=== PATIENT | male | born 1990 | race Caucasian/White ===

== ENCOUNTER 2019-03-14 14:51 | Outpatient (RCR) | payer OTHER, SELFPAY ==
--- NOTE | 2019-03-14 15:28 | HP.PTEVAL ---
Patient's Visit Information AYLIN SIMPSON is a 28 year old M referred to Physical Therapy by Lizabeth Calhoun NP with a diagnosis of vertigo. Date of Evaluation: 03/14/19 Physical Therapist: Harley Potts, REE, OCS, CSCS - Visit Plan Frequency: 1x/Week Duration: 4-6 Weeks Plan: Weekly x 2-6 as needed for positional treatments and reintegration to climbing if needed. Next session recheck positional and turning balance. - Subjective Findings: Vertigo for a year and a half. Intermittently worse. Feels constant dyequilibrium worse with head movements. Spinning can happen if he looks up and down too quick. Lasts a minute or so. 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 Activities are effected in that playing hard ball isn't easy. 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 Has to be careful. No falls. Balance is not the best. Sleep is good. May have started with an incident where he jumped off something adn hit tailbone whcih raghavendra his body. - Objective Walks normal and trasnfers normal and I. C/S aROM WFL and without pain. Balance appears good except with quick turn. - L hallpike norm. + R hallpike for up torsional nystagmus of 5 second duration adn dizzy. Treated with R Bobbi and then negative test. - Balance Scores Functional Gait Assessment Score: 28 % Disability: 6.6700 - Goals Goal 1:: Abolish vertigo feeling Goal Time Frame: 4-6 Weeks Goal 2:: Climb adders confidently without concern Goal Time Frame: 4-6 Weeks - Rehabilitation Potential Physical Therapy Diagnosis: BPPV Rehabilitation Potential: Good - Anticipated Interventions Patient/Client Instruction: Educate patient on: Condition, Plan of Care For the Purpose of:: To increase tolerance to activity/condition/position Comment: positional ex adn treatments For the Purpose of:: To increase tolerance to activity/condition/position Thank you for the opportunity to evaluate your patient. For Medicare and Medicare HMO plans, please review the plan of care and approve it. It will need to be FAXED BACK to us at [phone] for Medicare purposes. For Medicare only, by signing this I certify the plan of care. Please let me know if there are questions or concerns regarding this plan of care. Physician Signature: Date:
--- NOTE | 2019-05-21 13:42 | HP.PTDCNRP_ITS ---
HP - Discharge Summary (1) - Patient Information AYLIN SIMPSON was seen in my office for initial evaluation on 03/14/19. The following Plan of Care was established for this patient: Initial Frequency: 1x/Week Initial Duration: 4-6 Weeks - Anticipated Interventions Patient/Client Instruction: Educate patient on: Condition, Plan of Care For the Purpose of:: To increase tolerance to activity/condition/position For the Purpose of:: To increase tolerance to activity/condition/position This patient was last seen in our office 03/14/19. Pertinent comments regarding their Physical therapy will appear below: Pt seen for one visit adn was treated with repositioning technique. She was to f/u weekly to ensure abolishment of dizzyness but neglected to schedule or atte nd any further visits. At this point, it has been over two months adn I will discontinue due to nonattendance. At this point I will be discontinuing this patient from physical therapy. I would be happy to see this patient again in the future if found appropriate by the physician. Thank you! Harley Potts, DPT, OCS, CSCS
== END 2019-03-14 19:00 | disposition home or self-care (01) ==
LOC: PT 14:51
PROVIDERS: Family Provider Family Medicine; PCP Family Medicine; Referring Provider Nurse Practitioner; Visit Provider Nurse Practitioner
DX: R42 Dizziness and giddiness (principal)
CPT/HCPCS: 97161

== ENCOUNTER → 2019-11-28 06:24 | Outpatient (CLI) | payer SELFPAY, OTHER ==
--- NOTE | 2019-11-28 06:35 | MRI_ITS ---
STUDY: MRI BRAIN WITH AND WITHOUT CONTRAST REASON FOR EXAM: Male, 29 years old. ataxia, vertigo, off balance, vision changes COMPARISON: None. TECHNIQUE: An MRI was performed utilizing axial diffusion and ADC map images followed by axial T2 and FLAIR and gradient echo images followed by sagittal and axial T1 weighted images. Multiplanar postcontrast T1-weighted images of the head were also obtained. FINDINGS: The diffusion weighted axial images and ADC map images of the head show mild restricted diffusion in a 5 x 4 hyperdense mass lesion seen with its epicenter located at the right dorsum and diaphragmatic sella. This meningioma extends inferiorly along the right clivus. The medulla appears to be normal. The right side of the rosemary is compressed by this hypodense mass lesion which uniformly enhances. This represents a large meningioma which is compressing the rosemary and the right midbrain and right cerebral peduncle. The inferior superior extent of this mass lesion is 5.17 cm. This meningioma appears to be partly encasing the right distal vertebral artery and the right side of the basilar artery and the right posterior cerebral artery. The massive compression of the brainstem is causing compression of the aqueduct of Sylvius and the fourth ventricle The ventricles and sulci are mildly enlarged. The meningioma appears to be extending over the right tentorium and is compressing the medial aspect of the right temporal lobe.The remainder of the cerebral hemispheres appear to be normal.The basal ganglia appear to be normal. No other enhancing masses or lesions are seen. The gradient echo axial images are normal. No evidence of a Chiari I malformation is identified. The V4 segments of the left vertebral artery, appears to be normal, the basilar artery is partially encased by the large meningioma., The P1 and P2 segments of the right posterior cerebral artery are encased by the meningioma., The right supraclinoid carotid artery and the M1 segment of the right middle cerebral artery appear to be encased by the meningioma. This large meningioma is causing some mild inferior effacement of the right optic chiasm and is effacing the inferior aspect of the right optic nerve. The pituitary and pituitary infundibulum appear to be normal. The inner and outer tables of the skull are normal The frontal, ethmoid, maxillary, and sphenoid sinuses are normal. The mastoid air cells are normal. Dr. Gomez was notified by Dr. Young''s critical zone at 8:30 AM on 11/28/2019 MRI/Brain W/WO Contrast IMPRESSION: A large 5 x 5 x 4 cm meningioma is noted on the right with the epicenter at the right dorsum sella extending inferiorly along the clivus. This large meningioma is encasing multiple cerebral vessels and is causing mild obstructive hydrocephalus. It is also effacing the inferior right optic chiasm and right optic nerve. N.B. : The above information has been verbally conveyed by Josh Young to Carlos Gomez MD, on 11/28/2019 08:27:22 (ET). Electronically Signed: Josh Young, at 8:42 EST Tel , Service support ,
== END ==
PROVIDERS: PCP Family Medicine; Referring Provider Otolaryngology; Visit Provider Otolaryngology
DX: R27.0 Ataxia, unspecified (principal)
CPT/HCPCS: 70553; A9575

== ENCOUNTER → 2022-06-08 | Outpatient (CLI) | payer OTHER, SELFPAY ==
[2022-06-08 10:25] LABS: Sodium Level 135 mmol/L (136-145); T4 Free Direct 0.46 ng/dL (0.76-1.46)
== END | disposition home or self-care (01) ==
PROVIDERS: PCP Family Medicine
DX: D32.9 Benign neoplasm of meninges, unspecified (principal)
CPT/HCPCS: 36415; 84295; 84439

== ENCOUNTER → 2022-06-15 | Outpatient (CLI) | payer OTHER, SELFPAY ==
[2022-06-15 09:17] LABS: Sodium Level 144 mmol/L (136-145); T4 Free Direct 0.67 ng/dL (0.76-1.46)
== END | disposition home or self-care (01) ==
LOC: LAB 07:51
PROVIDERS: PCP Family Medicine
DX: Z00.00 Encounter for general adult medical examination without abnormal findings (principal)
CPT/HCPCS: 36415; 84295; 84439

== ENCOUNTER → 2022-08-17 | Outpatient (CLI) | payer OTHER, SELFPAY ==
[2022-08-17 09:03] LABS: Anion Gap 4 (5-15); BUN 10 mg/dL (7-18); BUN/Creat Ratio 10.8 RATIO (10-20); Calcium,Total 9.5 mg/dL (8.5-10.1); Chloride 106 mmol/L (98-107); Creatinine, Serum 0.92 mg/dL (0.70-1.30); EST Glomerular Filtration Rate 101 mL/min (>60); Est Glom Filt Rate - Afr Amer 123 mL/min (>60); Glucose 89 mg/dL (74-106); Luteinizing Hormone 2.2 mIU/mL; Potassium 4.1 mmol/L (3.5-5.1); Sodium Level 141 mmol/L (136-145); Thyroid Stim Hormone (TSH) 2.33 uIU/mL (0.358-3.74)
[2022-08-23 12:08] LABS: Testosterone, % Free 2.81 % (1.50-4.20); Testosterone, Free 16.16 ng/dL (5.00-21.00)
[2022-08-23 15:52] LABS: Adrenocorticotropic Hormone 24.1 pg/mL (7.2-63.3); Insulin Like Growth Factor 163 ng/mL (95-290); Testosterone, Total 575 ng/dL (264-916)
== END | disposition home or self-care (01) ==
LOC: LAB 08:03
PROVIDERS: PCP Family Medicine
DX: D32.9 Benign neoplasm of meninges, unspecified (principal); E23.2 Diabetes insipidus
CPT/HCPCS: 36415; 80048; 82024; 82533; 83001; 83002; 84146; 84305; 84402; 84403; 84439; 84443